=== PATIENT | female | born 1995 | race Caucasian/White ===

== ENCOUNTER 2018-01-08 14:48 | Emergency (ER) | payer OTHER ==
--- NOTE | 2018-01-08 14:58 | ER Report ---
History and Physical Time Seen By MD: 14:55 Hx. of Stated Complaint: right thumb pain HPI/ROS CHIEF COMPLAINT: Right thumb pain HISTORY OF PRESENT ILLNESS: This is a 22-year-old female who presents to the emergency department for a right thumb injury. Patient states about 2030 minutes prior to arrival she was playing volleyball, and hyperextended her right thumb. She now has pain and small amount of swelling to the base of the right thumb. CMS intact. Patient states that she did break her right thumb about a year ago. Nothing that required surgery, only splinting. No nausea or vomiting. No fevers or chills. REVIEW OF SYSTEMS: Respiratory: No cough, no dyspnea. Cardiovascular: No chest pain, no palpitations. Gastrointestinal: No vomiting, no abdominal pain. Musculoskeletal: As above. Allergies: Coded Allergies: benzoyl peroxide (Verified Adverse Reaction, Mild, RASH, 01/08/18) Home Meds Reported Medications Norethindrone (JOLIVETTE) 0.35 Mg Tablet, 0.35 MG PO QDAY 01/08/18 Albuterol Sulfate (PROVENTIL HFA) 6.7 Gm Inh, 2 PUFF INH Q4-6H PRN for WHEEZING, INH 01/08/18 Fluticasone/Salmeterol (ADVAIR 250-50 DISKUS) 1 Each Disk.w.dev, 1 EACH IH BID 01/08/18 Past Medical/Surgical History Patient has a past medical and surgical history of eye surgery, tonsillectomy, asthma. Reviewed Nurses Notes: Yes Constitutional Vital Sign - Last 24 Hours 01/08/18 01/08/18 01/08/18 01/08/18 14:48 14:52 14:54 15:00 Temp 98.5 Pulse 78 63 Resp 12 B/P (MAP) 126/89 (101) 126/89 117/80 (92) Pulse Ox 93 95 O2 Delivery Room Air 01/08/18 01/08/18 01/08/18 01/08/18 15:15 15:18 15:30 15:45 Pulse 74 B/P (MAP) 113/76 (88) 111/73 (86) 110/73 (85) Pulse Ox 96 01/08/18 15:48 Pulse 62 Pulse Ox 95 Physical Exam General Appearance: The patient is alert, has no immediate need for airway protection and no current signs of toxicity. Eyes: Pupils equal and round no injection. Respiratory: Chest is non tender, lungs are clear to auscultation. Cardiac: regular rate and rhythm. Gastrointestinal: Abdomen is soft and non tender, no masses, bowel sounds normal. Musculoskeletal: Neck: Neck is supple and non tender. Extremities Examination of the Right hand reveals no acute deformity. The patient is able to give a thumbs up sign, is able to make an okay sign, and is able to AB duct the fingers. Sensation is intact over the dorsal 1st web space, the volar aspect of the 2nd finger, and the volar aspect of the 5th finger. Capillary refill is brisk. Skin: No rashes or lesions. DIFFERENTIAL DIAGNOSIS: After history and physical exam differential diagnosis was considered for fracture, subluxation, contusion and hypermobile joint. Medical Decision Making EKG/Imaging Imaging Location: [facility] [place] Patient: Iona Thacker : 1995 Visit/Account:[id number] Date of Sevice: 01/08/2018 HAND COMPLETE RIGHT COMPARISON: None. HISTORY: Right thumb injury TECHNIQUE: 3 views of the right hand RIGHT HAND FINDINGS: BONES: No acute fracture, malalignment or bone lesion in the right hand including the thumb. Small marginal osteophyte, radial aspect of the base of the thumb proximal phalanx, without significant associated joint space narrowing. No other significant degenerative changes. SOFT TISSUES: Negative. OTHER: Negative. IMPRESSION: No acute fracture or malalignment in the right hand. Report Dictated By: Shai Gutierrez at 01/08/2018 3:25 PM Report E-Signed By: Shai Gutierrez at 01/08/2018 3:27 PM WSN:[id number] ED Course/Re-evaluation ED Course The patient was admitted to room. A history and physical were obtained. Differential diagnoses were considered. An x-ray of the right thumb was negative for any acute bony abnormalities. I reviewed these results with the patient. I d id tell her that this is likely a sprain of her right thumb. Patient was placed in a splint for comfort. I did instruct her to follow-up with [facility] or [facility] if the pain does not resolve in the next couple of days. Patient was instructed to take ibuprofen or Tylenol as needed for discomfort. Patient expressed understanding was discharged home. Decision to Disposition Date: Jan 08, 2018 Decision to Disposition Time: 15:42 Depart Departure Latest Vital Signs Vital Signs Date Time Temp Pulse Resp B/P (MAP) Pulse Ox O2 Delivery O2 Flow Rate FiO2 01/08/18 15:48 62 95 01/08/18 15:45 110/73 (85) 01/08/18 14:54 98.5 12 Room Air Impression: Primary Impression: Sprain of right thumb Condition: Improved Disposition: HOME OR SELF-CARE Referrals: [facility] Patient Instructions: Finger Sprain (ED) Additional Instructions: There are no fractures identified on your x-rays today. Keep the splint on for comfort. Take ibuprofen or Tylenol as needed for pain. Follow-up with replaced by [facility] in 2-5 days for reevaluation. If no improvement follow-up with [facility]. Drink plenty of water. Get plenty of rest. Return to the emergency department for any other concerns or worsening symptoms. Problem Qualifiers Primary Impression: Sprain of right thumb Encounter type: initial encounter Sprain of finger site: unspecified site Qualified Codes: S63.601A - Unspecified sprain of right thumb, initial encounter ARIELLA PALAFOXP-BC Jan 08, 2018 14:58
[2018-01-08] MEDS ORDERED: ALB6.7R INH (15:00)
[2018-01-08] MEDS ORDERED: NORE0.3521 PO (15:00)
[2018-01-08] MEDS ORDERED: FLUT1DIS28 IH (15:00)
--- NOTE | 2018-01-08 15:30 | RADIOLOGY IMAGING REPORT ---
FACILITY: [facility] PATIENT NAME: Iona Thacker : 1995 MR: [id number] V: [id number] EXAM DATE: ORDERING PHYSICIAN: ARIELLA PALAFOX TECHNOLOGIST: Location: [facility] [place] Patient: Iona Thacker : 1995 Visit/Account:[id number] Date of Sevice: 01/08/2018 HAND COMPLETE RIGHT COMPARISON: None. HISTORY: Right thumb injury TECHNIQUE: 3 views of the right hand RIGHT HAND FINDINGS: BONES: No acute fracture, malalignment or bone lesion in the right hand including the thumb. Small m arginal osteophyte, radial aspect of the base of the thumb proximal phalanx, without significant asso ciated joint space narrowing. No other significant degenerative changes. SOFT TISSUES: Negative. OTHER: Negative. IMPRESSION: No acute fracture or malalignment in the right hand. Report Dictated By: Shai Gutierrez at 01/08/2018 3:25 PM Report E-Signed By: Shai Gutierrez at 01/08/2018 3:27 PM WSN:[id number]
[2018-01-08 15:45] VITALS: BP 110/73
== END 2018-01-08 15:54 | disposition home or self-care (01) ==
LOC: ER 14:58
DX: S63.601A Unspecified sprain of right thumb, initial encounter (principal); Y93.68 Activity, volleyball (beach) (court)
CPT/HCPCS: 99283